=== PATIENT | female | born 1985 | race Caucasian/White ===

== ENCOUNTER 2024-04-19 12:24 | Emergency (ER) | payer OTHER ==
[~2024-04-19] VITALS: Ht 170.2 cm; Wt 82.5 kg
[2024-04-19 12:26] VITALS: BP 142/97; PULSE 85; TEMP 99; O2SAT 99
[2024-04-19 15:19] VITALS: RESP 16
[2024-04-19] MEDS: HYDROcodone/acetaminophen 10/325mg tab PO ONE (15:19)
[2024-04-19] MEDS: ondansetron 4mg rapidly disintigrating tab PO ONE (15:19)
== END 2024-04-19 16:00 | disposition home or self-care (01) ==
LOC: ER 12:25
DX: R51.9 Headache, unspecified (principal); Y08.89XA Assault by other specified means, initial encounter; Y93.89 Activity, other specified; Y92.89 Other specified places as the place of occurrence of the external cause; Y99.8 Other external cause status
CPT/HCPCS: 99283